=== PATIENT | female | born 1965 | race Caucasian/White ===

== ENCOUNTER 2017-05-04 12:09 | Emergency (ER) | payer OTHER ==
[~2017-05-04] VITALS: Ht 167.6 cm; Wt 56.2 kg
--- NOTE | 2017-05-04 12:50 | NUR ---
UNABLE TO PROVIDE URINE SAMPLE AT THIS TIME. AND DENIES ANY CHANCE OF BEING , STATTING THAT SHE IS UNDERGOING MENOPAUSE.
[2017-05-04] MEDS ORDERED: ONDANSETRON 4 MG TAB.RAPDIS ONE (12:58)
[2017-05-04] MEDS ORDERED: HYDROCODONE/APAP 10/325MG 1 EA TABLET ONE (12:58)
[2017-05-04] MEDS ORDERED: HYDROCODONE/APAP 10/325MG 1 EA TABLET PO ONE (13:00)
[2017-05-04] MEDS ORDERED: ONDANSETRON 4 MG TAB.RAPDIS SL ONE (13:00)
--- NOTE | 2017-05-04 13:07 | NUR ---
AGATHA AT BS.
[2017-05-04 14:27] VITALS: BP 141/80
== END 2017-05-04 14:29 | disposition home or self-care (01) ==
LOC: ER 12:13
DX: S20.211A Contusion of right front wall of thorax, initial encounter (principal); W01.0XXA Fall on same level from slipping, tripping and stumbling without subsequent striking against object, initial encounter; Y93.89 Activity, other specified; Y92.89 Other specified places as the place of occurrence of the external cause; Y99.8 Other external cause status
CPT/HCPCS: 71010; 99283; A4606; Q0162; Z7610

== ENCOUNTER 2019-05-27 08:45 | Emergency (ER) | payer OTHER ==
[~2019-05-27] VITALS: Ht 167.6 cm; Wt 60.8 kg
[2019-05-27] MEDS ORDERED: IBUPROFEN 600 MG TABLET PO ONE ×2 (09:00→09:02)
--- NOTE | 2019-05-27 09:04 | NUR ---
PT CAME INTO THE ED C/O LEFT FOOT PAIN x 4 DAYS, S/P SLIPPED AND FALL, -KO. L FOOT SWELLING NOTED. PT AAOX4, VSS, BREATHING EVEN AND UNLABORED ON ROOM AIR W/ NAD. PT CONNECTED TO THE MONITOR.
--- NOTE | 2019-05-27 09:12 | NUR ---
XRAY AT BEDSIDE
[2019-05-27 09:51] VITALS: BP 131/85
--- NOTE | 2019-05-27 09:51 | NUR ---
Patient discharged to home in stable condition. Written and verbal after care instructions given. Patient verbalizes understanding of instruction.
== END 2019-05-27 09:52 | disposition home or self-care (01) ==
LOC: ER 08:45
DX: S93.492A Sprain of other ligament of left ankle, initial encounter (principal); W01.0XXA Fall on same level from slipping, tripping and stumbling without subsequent striking against object, initial encounter; Y93.89 Activity, other specified; Y92.89 Other specified places as the place of occurrence of the external cause; Y99.8 Other external cause status
CPT/HCPCS: 73590-TC; 73610-TC; 73630-TC

== ENCOUNTER 2020-05-09 17:09 | Emergency (ER) | payer OTHER ==
[~2020-05-09] VITALS: Ht 167.6 cm; Wt 63.5 kg
[2020-05-09] MEDS ORDERED: TDAP [DIPH/PERTUSSIS/TET] 0.5 ML VIAL IM ONE ×2 (17:30→17:34)
[2020-05-09 18:18] VITALS: BP 156/90
[2020-05-09] MEDS ORDERED: LIDOCAINE HCL/MPF 1% 30 ML VIAL IJ ONE (19:13)
== END 2020-05-09 19:18 | disposition home or self-care (01) ==
LOC: ER 17:13
DX: S92.412A Displaced fracture of proximal phalanx of left great toe, initial encounter for closed fracture (principal); S90.212A Contusion of left great toe with damage to nail, initial encounter; K21.9 Gastro-esophageal reflux disease without esophagitis; M19.90 Unspecified osteoarthritis, unspecified site; F12.90 Cannabis use, unspecified, uncomplicated; W20.8XXA Other cause of strike by thrown, projected or falling object, initial encounter; Y93.89 Activity, other specified; Y92.89 Other specified places as the place of occurrence of the external cause; Y99.8 Other external cause status
CPT/HCPCS: 11740; 73660; 90471; 90715; 99284; A6403; J3490

== ENCOUNTER 2021-02-20 00:10 | Emergency (ER) | payer OTHER ==
[~2021-02-20] VITALS: Ht 167.6 cm; Wt 63.5 kg
[2021-02-20 00:10] VITALS: BP 131/82
[2021-02-20] MEDS ORDERED: KETO10TA2 PO (00:41)
[2021-02-20] MEDS ORDERED: AMOX1TAB16 PO (00:41)
[2021-02-20] MEDS ORDERED: GELATIN SPONGE,ABSORBABLE 1 SPONGE SPONGE TP ONE (00:51)
== END 2021-02-20 01:51 | disposition home or self-care (01) ==
LOC: ER 00:10
DX: S61.300A Unspecified open wound of right index finger with damage to nail, initial encounter (principal); K21.9 Gastro-esophageal reflux disease without esophagitis; W45.8XXA Other foreign body or object entering through skin, initial encounter; Y93.G3 Activity, cooking and baking; Y92.89 Other specified places as the place of occurrence of the external cause; Y99.8 Other external cause status

== ENCOUNTER 2023-09-19 15:00 | Inpatient (IN) | payer OTHER ==
[~2023-09-19] VITALS: Ht 167.6 cm; Wt 68.2 kg
[2023-09-19] MEDS ORDERED: CT SWABBABLE VALVE TRANS SET 1 EA INFUS.SET MC ONE (15:29)
[2023-09-19] MEDS ORDERED: IOHEXOL-350 100 ML VIAL IV ONE (15:29)
[2023-09-19] MEDS ORDERED: IV NS 0.9% 250 ML IV ONE (15:29)
[2023-09-19 15:32] LABS: BASOPHILS # (AUTO) 0.1 K/uL (0.0-0.2); BASOPHILS % (AUTO) 0.7 % (0.0-2.0); EOSINOPHILS % (AUTO) 0.3 % (0.0-6.0); HEMATOCRIT 46 % (33-45); HEMOGLOBIN 15.3 g/dL (11.5-14.8); LYMPHOCYTES # (AUTO) 0.9 K/uL (0.8-4.8); LYMPHOCYTES % (AUTO) 5.3 % (20.0-44.0); MEAN CORPUSCULAR HEMOGLOBIN 33 PG (26.0-33.0); MEAN CORPUSCULAR HGB CONC 34 g/dl (31.0-36.0); MEAN CORPUSCULAR VOLUME 99 fL (82-100); MONOCYTES % (AUTO) 5.5 % (2.0-12.0); NEUTROPHILS # (AUTO) 15.3 K/uL (1.8-8.9); NEUTROPHILS % (AUTO) 88.2 % (43.0-81.0); PLATELET COUNT (AUTO) 294 K/uL (150-450); RED BLOOD CELL COUNT(AUTO) 4.63 MIL/uL (4.0-5.2); RED CELL DISTRIBUTION WIDTH 13.7 % (11.5-15.0); WHITE BLOOD COUNT (AUTO) 17.3 K/uL (4.3-11.0)
[2023-09-19 15:41] LABS: CALCIUM, SERUM 10.1 mg/dL (8.5-10.1); CARBON DIOXIDE 26 mmol/L (21-32); CHLORIDE 98 mmol/L (98-107); CREATININE 0.9 mg/dL (0.6-1.3); GLUCOSE 134 mg/dL (74-106); POTASSIUM 3.5 mmol/L (3.5-5.1); SODIUM SERUM 133 mmol/L (136-145); UREA NITROGEN, BLOOD 14 mg/dL (7-18)
[2023-09-19 16:09] LABS: INR 0.96 (0.91-1.10); PARTIAL THROMBOPLASTIN TIME 26.1 SEC (24.3-34.3); PROTHROMBIN TIME 9.9 SECS (9.2-11.1)
[2023-09-19] MEDS ORDERED: FAMO40TA70 PO (16:24)
[2023-09-19] MEDS ORDERED: AMLO10TA4 PO (16:24)
[2023-09-19] MEDS ORDERED: SULF1TAB48 PO (16:24)
[2023-09-19] MEDS ORDERED: [UNRECOGNIZED DRUG - CODE] TP (16:24)
[2023-09-19] MEDS ORDERED: CHOL200059 PO (16:24)
[2023-09-19] MEDS ORDERED: DICLOFENAC SOD TP (16:24)
[2023-09-19] MEDS ORDERED: CETI10TA14 PO (16:24)
[2023-09-19] MEDS ORDERED: ERGO500093 PO (16:24)
[2023-09-19] MEDS ORDERED: CLOPIDOGREL BISULFATE 75 MG TABLET ONE (16:40)
[2023-09-19] MEDS ORDERED: ASPIRIN 81 MG TAB.CHEW ONE (16:40)
[2023-09-19] MEDS: CLOPIDOGREL BISULFATE 75 MG TABLET PO ONE (16:41)
[2023-09-19] MEDS: ASPIRIN 81 MG TAB.CHEW PO ONE (16:42)
[2023-09-19 17:10] LABS: APPEARANCE,URINE Clear (CLEAR); BILIRUBIN,URINE Negative (NEGATIVE); BLOOD, URINE Large Ery/uL (NEGATIVE); COLOR,URINE YELLOW (YELLOW); KETONES,URINE Negative (NEGATIVE); LEUKOCYTE ESTERASE ,URINE Small (NEGATIVE); NITRITE, URINE Negative (NEGATIVE); PROTEIN,URINE Negative (NEGATIVE); UGLUCOSE Negative (NEGATIVE); UROBILINOGEN,URINE 0.2 EU/dL (0.2)
[2023-09-19 17:19] LABS: ADD URINE CULTURE YES; BACTERIA,URINE Rare /HPF (None Seen); RBC,URINE 51-80 /HPF (0-2)
[2023-09-19] MEDS ORDERED: IV NS 0.9% 1,000 ML IV PRN (18:30)
[2023-09-19] MEDS ORDERED: FAMOTIDINE 40 MG TABLET PO PRN (18:30)
[2023-09-19] MEDS ORDERED: FAMOTIDINE (20 MG) 20 MG TABLET PO PRN (19:00)
[2023-09-19 21:00] VITALS: BP 132/89; TEMP 98.3; O2SAT 98
[2023-09-19] MEDS ORDERED: SIMVASTATIN 20 MG TABLET ONE (21:59)
[2023-09-19] MEDS: SULFAMETH/TRIMETH 800/160 MG 1 UDTAB TABLET PO SCH (22:03)
[2023-09-19] MEDS: SIMVASTATIN 40 MG TABLET PO SCH (22:04)
[2023-09-19] MEDS: BLOOD SUGAR DIAGNOSTIC 1 EACH STRIP IN SCH (22:13)
[2023-09-20 01:00] VITALS: BP 117/73; TEMP 98.6; O2SAT 98
[2023-09-20 04:00] VITALS: BP 135/85; TEMP 98.4; O2SAT 98
[2023-09-20 07:17] LABS: BASOPHILS # (AUTO) 0.1 K/uL (0.0-0.2); BASOPHILS % (AUTO) 0.6 % (0.0-2.0); EOSINOPHILS # (AUTO) 0.3 K/uL (0.0-0.7); EOSINOPHILS % (AUTO) 2.4 % (0.0-6.0); HEMATOCRIT 43 % (33-45); HEMOGLOBIN 14.7 g/dL (11.5-14.8); LYMPHOCYTES # (AUTO) 1.2 K/uL (0.8-4.8); LYMPHOCYTES % (AUTO) 11.2 % (20.0-44.0); MEAN CORPUSCULAR HEMOGLOBIN 34 PG (26.0-33.0); MEAN CORPUSCULAR HGB CONC 34 g/dl (31.0-36.0); MEAN CORPUSCULAR VOLUME 100 fL (82-100); NEUTROPHILS # (AUTO) 8.2 K/uL (1.8-8.9); NEUTROPHILS % (AUTO) 76.8 % (43.0-81.0); PLATELET COUNT (AUTO) 260 K/uL (150-450); RED BLOOD CELL COUNT(AUTO) 4.32 MIL/uL (4.0-5.2); RED CELL DISTRIBUTION WIDTH 14.1 % (11.5-15.0); WHITE BLOOD COUNT (AUTO) 10.6 K/uL (4.3-11.0)
[2023-09-20 07:33] LABS: INR 1.04 (0.91-1.10); PARTIAL THROMBOPLASTIN TIME 30.5 SEC (24.3-34.3)
[2023-09-20 07:59] LABS: CALCIUM, SERUM 9.6 mg/dL (8.5-10.1); CREATININE 0.7 mg/dL (0.6-1.3); POTASSIUM 3.3 mmol/L (3.5-5.1)
[2023-09-20 08:00] VITALS: BP 135/67; TEMP 97.9; O2SAT 96
[2023-09-20] MEDS: CHOLECALCIFEROL 1,000 UNIT TABLET (VIT D3) PO SCH (08:43)
[2023-09-20] MEDS: ASPIRIN 81 MG TAB.CHEW PO SCH (08:45)
[2023-09-20] MEDS: POTASSIUM CHLORIDE 20 MEQ TAB.PRT.SR PO ONE (09:42)
[2023-09-20 12:00] VITALS: BP 137/67; TEMP 98; O2SAT 96
[2023-09-20] MEDS ORDERED: ASPI-1169 PO (12:44)
[2023-09-20] MEDS ORDERED: SIMV-49 PO (12:44)
[2023-09-20] MEDS ORDERED: SIMVASTATIN 20 MG TABLET PO SCH (22:00)
[2023-09-21 08:10] LABS: FOLIC ACID 9.5 ng/mL (>3.0)
[2023-09-21] MEDS ORDERED: ERGOCALCIFEROL (VITAMIN D 2) 50,000 UNIT CAPSULE PO SCH (09:00)
== END 2023-09-20 15:15 | disposition home or self-care (01) | DRG 69 ==
LOC: ER 15:05 → TELE1 18:37
PROVIDERS: ADMIT Nurse Practitioner Acute Care; ATTEND Nurse Practitioner Acute Care
DX: G45.9 Transient cerebral ischemic attack, unspecified (principal); N39.0 Urinary tract infection, site not specified; I10 Essential (primary) hypertension; C50.919 Malignant neoplasm of unspecified site of unspecified female breast; R29.701 NIHSS score 1; Z82.49 Family history of ischemic heart disease and other diseases of the circulatory system; D72.829 Elevated white blood cell count, unspecified; R20.0 Anesthesia of skin; R51.9 Headache, unspecified; B96.20 Unspecified Escherichia coli [E. coli] as the cause of diseases classified elsewhere; Z92.3 Personal history of irradiation; Z79.60 Long term (current) use of unspecified immunomodulators and immunosuppressants; R53.1 Weakness; H53.8 Other visual disturbances; D47.2 Monoclonal gammopathy
CPT/HCPCS: 36415; 70450-TC; 70496-TC; 70498-TC; 80048-TC; 80061-TC; 81001; 82607-TC; 82962-TC; 83921; 84443-TC; 84484-TC; 85025-TC; 85730-TC; 87086-TC; 92526; 92611-TC; 93307-TC; 93880-TC; 97112-TC; 97116-TC; 97530-TC; G0378; J7050; Q9967

== ENCOUNTER 2025-02-18 16:53 | Emergency (ER) | payer OTHER ==
[~2025-02-18] VITALS: Ht 167.6 cm; Wt 68.0 kg
[~2025-02-18 16:53] MED LIST: AMLO10TA4 PO; ASPI-1169 PO; CETI10TA14 PO; CHOL200059 PO; DICLOFENAC SOD TP; ERGO500093 PO; FAMO40TA70 PO; SIMV-49 PO; SULF1TAB48 PO; [UNRECOGNIZED DRUG - CODE] TP
[2025-02-18 17:49] LABS: PLATELET COUNT (AUTO) 319 K/uL (150-450); RED BLOOD CELL COUNT(AUTO) 4.67 MIL/uL (4.0-5.2); RED CELL DISTRIBUTION WIDTH 13.5 % (11.5-15.0); WHITE BLOOD COUNT (AUTO) 10.6 K/uL (4.3-11.0)
[2025-02-18 18:01] LABS: CALCIUM, SERUM 9.9 mg/dL (8.5-10.1); CREATININE 0.6 mg/dL (0.6-1.3); SODIUM SERUM 137.0 mmol/L (136-145); UREA NITROGEN, BLOOD 14.0 mg/dL (7-18)
[2025-02-18] MEDS ORDERED: IOHEXOL-300 100 ML VIAL IV ONE (18:17)
[2025-02-18] MEDS ORDERED: IV NS 0.9% 250 ML IV ONE (18:17)
[2025-02-18 20:29] VITALS: BP 113/68; TEMP 98; O2SAT 98
== END 2025-02-18 20:29 | disposition home or self-care (01) ==
LOC: ER 16:58
DX: K42.9 Umbilical hernia without obstruction or gangrene (principal); M19.90 Unspecified osteoarthritis, unspecified site; Z79.82 Long term (current) use of aspirin; Z79.899 Other long term (current) drug therapy
CPT/HCPCS: 99285; 74177; 85025; 80048; 36415; J7050; Q9967